=== PATIENT | male | born 1940 | race Caucasian/White ===

== ENCOUNTER 2017-11-10 10:20 | Inpatient (IN) | payer OTHER, BC ==
[~2017-11-10] VITALS: Ht 172.7 cm; Wt 86.4 kg
[~2017-11-10 10:20] MED LIST: ASMANEX TW0.22 MG/A1 IH; ASPIR 8181 MG PO; AVELOX400 MG PO; BYSTOLIC5 M1 PO; CLINDAMYCIN HC300 MG PO; COZAAR100 MG PO; CRESTOR10 M1 PO; GABAPENTIN300 M2 PO; HYDROCHLOROTHIA25 MG PO; LAC PO; LEVAQUIN750 MG PO; LEVOTHROID0.075 MG PO; LOSARTAN POTASS1 TAB PO; MEDDP PO; SPIRIVA18 MC1 IH
[2017-11-10 10:25] VITALS: Ht 172.7 cm; Wt 86.4 kg
[2017-11-10] MEDS ORDERED: SPIRIVA18 MC1 INH (10:44)
[2017-11-10] MEDS ORDERED: NEU300 PO (11:00)
[2017-11-10] MEDS ORDERED: COZAAR100 MG PO (11:02)
[2017-11-10] MEDS ORDERED: NOR5 PO (11:02)
[2017-11-10] MEDS ORDERED: LEVOXYL0.088 MG PO (11:03)
[2017-11-10] MEDS ORDERED: LASIX20 MG PO (11:04)
[2017-11-10] MEDS ORDERED: HYDROCHLOROTH12.5 M3 PO (11:04)
[2017-11-10] MEDS ORDERED: METFORMIN HCL500 MG PO (11:04)
[2017-11-10] MEDS ORDERED: PROAIR HFA8.5 GM INH (11:05)
[2017-11-10] MEDS ORDERED: CALCIUM 600600 M3 PO (11:07)
[2017-11-10] MEDS ORDERED: ASPIR LOW81 MG PO (11:07)
[2017-11-10] MEDS ORDERED: CENTRUM SILVER1 EACH PO (11:08)
[2017-11-10] MEDS ORDERED: PROBIOTIC1 EAC1 PO (11:08)
[2017-11-10] MEDS ORDERED: FLAX OIL PO (11:08)
[2017-11-10 11:29] LABS: BASOPHIL % 1.4 % (0-2); PLATELET COUNT 235 x10^3mcL (130-400); RED CELL DISTRIBUTION WIDTH 14.1 % (11.5-14.5)
[2017-11-10 11:46] LABS: CALCIUM 10.1 mg/dL (8.5-10.1); CARBON DIOXIDE 30.1 mmol/L (21-32); CHLORIDE SERUM 102 mmol/L (98-107); CREATININE SERUM 1.7 mg/dL (0.7-1.3); GLUCOSE SERUM 175 mg/dL (74-106); POTASSIUM SERUM 3.2 mmol/L (3.5-5.1); SODIUM SERUM 142 mmol/L (136-145)
[2017-11-10 11:58] LABS: FREE T4 1.18 ng/dL (0.76-1.46); FREE THYROXINE INDEX 2.2 ug/dL (1.4-4.5); T4(THYROXINE) 6.5 ug/dL (4.7-13.3)
[2017-11-10 12:05] LABS: T3 TOTAL 0.66 ng/mL
[2017-11-10 12:07] LABS: CK-MB 1.5 ng/mL (0-3.6)
[2017-11-10 12:14] LABS: ALKALINE PHOSPHATASE 63 U/L (46-116); ALT/SGPT 40 U/L (16-63); AST/SGOT 65 U/L (15-37); BILIRUBIN TOTAL 0.92 mg/dL (0.20-1.00)
[2017-11-10 12:32] LABS: ERYTHROCYTE SED RATE 93 mm/hr (0-20)
[2017-11-10 12:44] LABS: C REACTIVE PROTEIN 32.5 mg/dL (<=0.9)
[2017-11-10 13:08] LABS: MAGNESIUM 1.9 mg/dL (1.8-2.4); PHOSPHOROUS 3.4 mg/dL (2.5-4.9)
[2017-11-10 13:09] LABS: CHOLESTEROL/HDL RATIO 2.5
[2017-11-10 13:18] VITALS: BP 126/53
[2017-11-10 13:41] VITALS: BP 109/44
[2017-11-10 20:47] VITALS: BP 117/47
[2017-11-11 04:49] VITALS: BP 110/42
[2017-11-11 07:18] LABS: CALCIUM 9.5 mg/dL (8.5-10.1); CARBON DIOXIDE 27.3 mmol/L (21-32); CHLORIDE SERUM 102 mmol/L (98-107); CREATININE SERUM 1.6 mg/dL (0.7-1.3); GLUCOSE SERUM 157 mg/dL (74-106); POTASSIUM SERUM 3.6 mmol/L (3.5-5.1); SODIUM SERUM 141 mmol/L (136-145)
[2017-11-11 07:23] LABS: BASOPHIL % 0 % (0-2); PLATELET COUNT 241 x10^3mcL (130-400); RED CELL DISTRIBUTION WIDTH 13.9 % (11.5-14.5)
[2017-11-11 08:30] VITALS: BP 128/72
[2017-11-11 13:00] VITALS: BP 127/47
[2017-11-11 17:43] VITALS: BP 153/60
[2017-11-11 20:45] VITALS: BP 129/52
[2017-11-11 20:54] LABS: UA SPECIFIC GRAVITY 1.015 (1.005-1.035); microscopic required? YES; urine erythrocyte TRACE (NEGATIVE)
[2017-11-11 21:01] LABS: AMPHETAMINE QUAL UR NONE DETECTED (NEG <=1000)
[2017-11-12 05:36] VITALS: BP 131/61
[2017-11-12 07:31] LABS: PLATELET COUNT 255 x10^3mcL (130-400); RED CELL DISTRIBUTION WIDTH 14.4 % (11.5-14.5)
[2017-11-12 07:51] LABS: BASOPHIL % 0 % (0-2)
[2017-11-12 08:32] LABS: CALCIUM 8.8 mg/dL (8.5-10.1); CHLORIDE SERUM 106 mmol/L (98-107); CREATININE SERUM 1.3 mg/dL (0.7-1.3); GLUCOSE SERUM 187 mg/dL (74-106); SODIUM SERUM 142 mmol/L (136-145)
[2017-11-12 08:51] VITALS: BP 138/61
[2017-11-12 13:29] VITALS: BP 132/58
[2017-11-12 16:50] VITALS: BP 118/61
[2017-11-12 20:41] VITALS: BP 146/61
[2017-11-13 05:54] VITALS: BP 160/58
[2017-11-13 06:26] LABS: CALCIUM 8.7 mg/dL (8.5-10.1); CARBON DIOXIDE 27.7 mmol/L (21-32); CHLORIDE SERUM 109 mmol/L (98-107); CREATININE SERUM 1.3 mg/dL (0.7-1.3); GLUCOSE SERUM 120 mg/dL (74-106); POTASSIUM SERUM 3.7 mmol/L (3.5-5.1); SODIUM SERUM 145 mmol/L (136-145)
[2017-11-13 06:41] LABS: BASOPHIL % 0.2 % (0-2); PLATELET COUNT 254 x10^3mcL (130-400); RED CELL DISTRIBUTION WIDTH 14.3 % (11.5-14.5)
[2017-11-13] MEDS ORDERED: LEVAQUIN750 MG PO (09:06)
[2017-11-13] MEDS ORDERED: CLEOCIN HCL300 MG PO (09:07)
[2017-11-13 09:08] VITALS: BP 126/60
[2017-11-13] MEDS ORDERED: LAC PO (09:08)
[2017-11-13 11:07] VITALS: BP 126/60
== END 2017-11-13 13:25 | disposition home or self-care (01) | DRG 177 ==
LOC: ED 10:20 → MU 11:56 → DU 11:56 → MU 11-12 18:48
PROVIDERS: Family Medicine Sports Medicine; Specialist
DX: J69.0 Pneumonitis due to inhalation of food and vomit (principal); I63.8 Other cerebral infarction; N17.0 Acute kidney failure with tubular necrosis; J96.01 Acute respiratory failure with hypoxia; J44.1 Chronic obstructive pulmonary disease with (acute) exacerbation; E44.0 Moderate protein-calorie malnutrition; G81.91 Hemiplegia, unspecified affecting right dominant side; J44.0 Chronic obstructive pulmonary disease with (acute) lower respiratory infection; R29.810 Facial weakness; I10 Essential (primary) hypertension; E86.0 Dehydration; E87.6 Hypokalemia; E11.51 Type 2 diabetes mellitus with diabetic peripheral angiopathy without gangrene; E11.42 Type 2 diabetes mellitus with diabetic polyneuropathy; K76.0 Fatty (change of) liver, not elsewhere classified; N20.0 Calculus of kidney; E03.9 Hypothyroidism, unspecified; E78.5 Hyperlipidemia, unspecified; Z82.49 Family history of ischemic heart disease and other diseases of the circulatory system; Z72.89 Other problems related to lifestyle; Z68.28 Body mass index [BMI] 28.0-28.9, adult; K80.20 Calculus of gallbladder without cholecystitis without obstruction
CPT/HCPCS: 82962; 83880; 84439; 87804; J0456; J0696; J1956; J2920; J3490; J7030; J7620; Q0092